=== PATIENT | female | born 1995 | race American Indian/Alaskan Native ===

== ENCOUNTER 2021-07-29 09:01 | Emergency (ER) | payer OTHER ==
--- NOTE | 2021-07-29 11:56 | Cat Scan Report ---
CT HEAD WITHOUT CONTRAST INDICATION / CLINICAL INFORMATION: headache hx brain tumor. TECHNIQUE: Axial imaging performed from the skull apex through the skull base without the use of cont rast. Sagittal and coronal reformatted images. All CT scans at this location are performed using CT dose reduction for ALARA by means of automated exposure control. COMPARISON: None available. FINDINGS: CEREBRAL PARENCHYMA: There is focal encephalomalacia/surgical site in the right lower lobe laterally measuring up to 2.4 x 2.8 cm which probably represents site brain tumor resection per the clinical hi story. Otherwise the brain parenchyma is normal density throughout. The mane-white interface is well- defined. No acute parenchymal abnormality is appreciated. HEMORRHAGE: None. EXTRA-AXIAL SPACES: Normal in size and morphology for the patient's age. VENTRICULAR SYSTEM: Normal in size and morphology for the patient's age. MIDLINE SHIFT OR HERNIATION: None. CEREBELLUM / BRAINSTEM: No significant abnormality. CALVARIUM: Unremarkable appearance of the craniotomy site in the right frontal region. The calvarium is otherwise unremarkable. ORBITS: Normal as visualized. PARANASAL SINUSES / MASTOID AIR CELLS: Normal as visualized. SOFT TISSUES of HEAD: No significant abnormality. ADDITIONAL FINDINGS: None. IMPRESSION: No acute intracranial abnormality. Surgical site in the right frontal lobe as described. Signer Name: Horace Gamboa Jr, MD Signed: 07/29/2021 11:52 AM Workstation Name: [id number]
[2021-07-29] MEDS ORDERED: KETOROLAC 60 MG/2 ML INJ IM ONE (12:05)
--- NOTE | 2021-07-29 12:05 | Emergency Department Report ---
ED Headache HPI - General Chief Complaint: Headache Stated Complaint: SEVERE MIGRAINES Time Seen by Provider: 07/29/21 11:02 Source: patient, family Exam Limitations: no limitations - History of Present Illness Initial Comments: Patient is a 26-year-old female that comes to the emergency room with a headache for 2 days. Patient does have a history of brain tumor resection. Details are vague. Patient does not know a lot of the information of masking. But she states as a child she had a benign tumor that was resected at [facility]. She does not follow-up with neurology. She has been fine but yesterday started having headaches. She has no nausea or vomiting. No photophobia. She is neurologically intact. She drove her self to the ER, and is ambulatory to fast track. No fever or chills. Timing/Duration: other Quality: mild (2 days) Head Injury Location: frontal Modifying Factors: worse with: cold therapy, exposure to light, immobilization, medication, movement, rest, other Associated Symptoms: denies: denies symptoms, confusion, fatigue, facial pain, fever/chills, flushing, loss of consciousness, nausea/vomiting, nasal congestion, nasal drainage, numbness in legs/feet, rash, seizures, sinus infection, stiff neck, vision changes, weakness, other Allergies/Adverse Reactions: Allergies No Known Allergies Allergy (Unverified 07/29/21 10:06) ED Review of Systems ROS: Stated complaint: SEVERE MIGRAINES Other details as noted in HPI Comment: All other systems reviewed and negative ED Past Medical Hx - Past Medical History Previous Medical History?: Yes - Surgical History Past Surgical History?: Yes Hx Breast Surgery: Yes Additional Surgical History: Brain tumor resection, reported to be benign - Family History Family history: no significant - Social History Smoking Status: Never Smoker Substance Use Type: None ED Physical Exam - General Limitations: No Limitations General appearance: alert, in no apparent distress - Head Head exam: Present: atraumatic, normocephalic - Eye Eye exam: Present: normal appearance - ENT ENT exam: Present: mucous membranes moist - Neck Neck exam: Present: normal inspection - Respiratory Respiratory exam: Present: normal lung sounds bilaterally. Absent: respiratory distress - Cardiovascular Cardiovascular Exam: Present: regular rate, normal rhythm. Absent: systolic murmur, diastolic murmur, rubs, gallop - GI/Abdominal GI/Abdominal exam: Present: soft, normal bowel sounds - Extremities Exam Extremities exam: Present: normal inspection - Back Exam Back exam: Present: normal inspection - Neurological Exam Neurological exam: Present: alert, oriented X3 - Psychiatric Psychiatric exam: Present: normal affect, normal mood - Skin Skin exam: Present: warm, dry, intact, normal color. Absent: rash ED Course Vital Signs 07/29/21 07/29/21 10:03 13:01 Temperature 98 F Pulse Rate 68 92 H Respiratory 16 18 Rate Blood Pressure 120/68 151/88 [Right] O2 Sat by Pulse 99 99 Oximetry ED Medical Decision Making - Radiology Data Radiology results: report reviewed, image reviewed nap - Medical Decision Making No focal deficit on exam. She is ambulatory. No cranial nerve deficit. She is moving all extremities equally. Pupils equal round react to light. Denies any recent head trauma. Denies photophobia. No fever or chills. No cough or recent UTI or URI. Denies nausea vomiting or diarrhea. Patient has had prior resection at [facility]. I encouraged her to follow-up with her neurosurgeon at [facility]. I have given her a copy of disc to take with her. I have also given her local referrals Vital Signs 07/29/21 10:03 Temperature 98 F Pulse Rate 68 Respiratory 16 Rate Blood Pressure 120/68 [Right] O2 Sat by Pulse 99 Oximetry Medicated with IM Toradol with relief Patient educated on discharge plan of care including diet, activity, medications and follow-up. She verbalizes understanding of the importance of follow-up. - Differential Diagnosis ro intracranial process Critical care attestation.: If time is entered above; I have spent that time in minutes in the direct care of this critically ill patient, excluding procedure time. ED Disposition Clinical Impression: History of brain tumor Headache Qualifiers: Headache type: unspecified Headache chronicity pattern: acute headache Intractability: not intractable Qualified Code(s): R51.9 - Headache, unspecified Disposition: 01 HOME / SELF CARE / HOMELESS Is pt being admited?: No Does the pt Need Aspirin: No Condition: Stable Instructions: General Headache Without Cause Additional Instructions: [id number] Motrin and Tylenol for mild pain Follow-up with PCP and/or neurology. Have given you referrals below. Head CT today was without acute process Diet and activity as tolerated Follow-up with your [facility] surgeon. [facility] is located on [facility] in [place]. They will have your prior records. Provide them the disc that I have given you today. Referrals: JUAN F FLANAGAN MD [Primary Care Provider] - 3-5 Days MISBAH MONTEIRO MD [Staff Physician] - 3-5 Days Forms: Work/School Release Form(ED) Time of Disposition: 12:12
[2021-07-29 13:02] VITALS: BP 151/88
== END 2021-07-29 13:02 | disposition home or self-care (01) ==
LOC: ED 09:01
DX: R51.9 Headache, unspecified (principal); Z86.011 Personal history of benign neoplasm of the brain; Z98.890 Other specified postprocedural states
CPT/HCPCS: 70450; 96372; 99283; J1885